=== PATIENT | female | born 1990 | race African-American/Black ===

== ENCOUNTER 2018-05-13 09:51 | Emergency (ER) | payer OTHER ==
[2018-05-13 10:03] VITALS: BP 113/82; PULSE 89; RESP 18; TEMP 98.4
[2018-05-13] MEDS ORDERED: SODIUM CHLORIDE 0.9% 2,000 ML IV STA (10:05)
[2018-05-13] MEDS ORDERED: METOCLOPRAMIDE 5 MG/ML 2 ML VIAL IVP STA (10:05)
--- NOTE | 2018-05-13 10:34 | ED ---
Nausea/Vomiting/Diarrhea HPI - General Chief complaint: Nausea/Vomiting/Diarrhea Stated complaint: 8 wks preg/vomiting Time Seen by Provider: 05/13/18 10:04 Source: patient, RN notes reviewed Mode of arrival: ambulatory Limitations: no limitations - History of Present Illness Initial comments: 28-year-old female presents emergency Department chief complaint abdominal pain, nausea vomiting. Patient states that she is 8 weeks and 1 day . Sondraaamir rakel has not seen an MIG TIG WELDER at this time. Patient has not had an ultrasound to confirm intrauterine . Patient complains of lower abdominal pain. Denies any vaginal bleeding no discharge.. patient states that she's not been able to keep anything down for last 1 week. patient denies any fevers or chills no dysuria. patient is a 0 - Related Data Previous Rx's Medication Instructions Recorded Metoclopramide [Reglan] 10 mg PO TID PRN #15 tab 05/13/18 Allergies Allergy/AdvReac Type Severity Reaction Status Date / Time No Known Allergies Allergy Verified 05/13/18 10:19 Review of Systems ROS Statement: Those systems with pertinent positive or pertinent negative responses have been documented in the HPI. ROS Other: All systems not noted in ROS Statement are negative. Past Medical History Past Medical History: No Reported History History of Any Multi-Drug Resistant Organisms: None Reported Past Surgical History: Section Past Psychological History: No Psychological Hx Reported Smoking Status: Never smoker Past Alcohol Use History: None Reported Past Drug Use History: None Reported General Exam Limitations: no limitations General appearance: alert, in no apparent distress Head exam: Present: atraumatic, normocephalic, normal inspection Respiratory exam: Present: normal lung sounds bilaterally. Absent: respiratory distress, wheezes, rales, rhonchi, stridor Cardiovascular Exam: Present: regular rate, normal rhythm, normal heart sounds. Absent: systolic murmur, diastolic murmur, rubs, gallop, clicks GI/Abdominal exam: Present: soft, tenderness (Mild suprapubic), normal bowel sounds. Absent: distended, guarding, rebound, rigid Back exam: Absent: CVA tenderness (R), CVA tenderness (L) Skin exam: Present: warm, dry, intact, normal color. Absent: rash Course Vital Signs 05/13/18 10:00 Temperature 98.4 F Pulse Rate 89 Respiratory 18 Rate Blood Pressure 113/82 O2 Sat by Pulse 100 Oximetry Medical Decision Making - Medical Decision Making 28-year-old female presented for nausea vomiting abdominal pain and early . Patient lab work, urinalysis and ultrasound. Ultrasound shows evidence of possible subchorionic hemorrhage. Patient has no active bleeding. Patient will be discharged follow-up with MIG TIG WELDER return parameters were discussed. - Lab Data Result diagrams: 05/13/18 10:40 05/13/18 10:40 Lab Results 05/13/18 05/13/18 05/13/18 Range/Units 10:40 10:40 10:40 WBC 5.4 (3.8-10.6) k/uL RBC 4.92 (3.80-5.40) m/uL Hgb 12.9 (11.4-16.0) gm/dL Hct 40.8 (34.0-46.0) % MCV 82.9 (80.0-100.0) fL MCH 26.2 (25.0-35.0) pg MCHC 31.6 (31.0-37.0) g/dL RDW 13.1 (11.5-15.5) % Plt Count 324 (150-450) k/uL Neutrophils % 51 % Lymphocytes % 37 % Monocytes % 8 % Eosinophils % 2 % Basophils % 0 % Neutrophils # 2.7 (1.3-7.7) k/uL Lymphocytes # 2.0 (1.0-4.8) k/uL Monocytes # 0.4 (0-1.0) k/uL Eosinophils # 0.1 (0-0.7) k/uL Basophils # 0.0 (0-0.2) k/uL Sodium 137 (137-145) mmol/L Potassium 4.1 (3.5-5.1) mmol/L Chloride 102 (98-107) mmol/L Carbon Dioxide 25 (22-30) mmol/L Anion Gap 10 mmol/L BUN 8 (7-17) mg/dL Creatinine 0.48 L (0.52-1.04) mg/dL Est GFR (CKD-EPI)AfAm >90 (>60 ml/min/1.73 sqM) Est GFR (CKD-EPI)NonAf >90 (>60 ml/min/1.73 sqM) Glucose 88 (74-99) mg/dL Calcium 9.8 (8.4-10.2) mg/dL Total Bilirubin 0.5 (0.2-1.3) mg/dL AST 18 (14-36) U/L ALT 24 (9-52) U/L Alkaline Phosphatase 45 (38-126) U/L Total Protein 7.5 (6.3-8.2) g/dL Albumin 4.4 (3.5-5.0) g/dL Amylase 136 H (30-110) U/L Lipase 144 (23-300) U/L Urine Color Yellow Urine Appearance Clear (Clear) Urine pH 7.5 (5.0-8.0) Ur Specific [place] 1.017 (1.001-1.035) Urine Protein Trace H (Negative) Urine Glucose (UA) Negative (Negative) Urine Ketones Negative (Negative) Urine Blood Negative (Negative) Urine Nitrite Negative (Negative) Urine Bilirubin Negative (Negative) Urine Urobilinogen <2.0 (<2.0) mg/dL Ur Leukocyte Esterase Negative (Negative) Disposition Clinical Impression: Nausea/vomiting in Disposition: HOME SELF-CARE Condition: Stable Instructions (If sedation given, give patient instructions): Nausea and Vomiting in (ED) Additional Instructions: Please return to the Emergency Department if symptoms worsen or any other concerns. Prescriptions: Metoclopramide [Reglan] 10 mg PO TID PRN #15 tab PRN Reason: GERD Is patient prescribed a controlled substance at d/c from ED?: No Referrals: None,Stated [Primary Care Provider] - 1-2 days Time of Disposition: 12:41
[2018-05-13 11:07] LABS: Appearance,Urine Clear (Clear); Bilirubin,Urine Negative (Negative); Blood,Urine Negative (Negative); Color,Urine Yellow; Glucose,Urine (UA) Negative (Negative); Ketones,Urine Negative (Negative); Leukocyte Esterase,Urine Negative (Negative); Nitrite,Urine Negative (Negative); PH, Urine 7.5 (5.0-8.0); Protein,Urine Trace (Negative); Specific Gravity,Urine 1.017 (1.001-1.035); Urobilinogen,Urine <2.0 mg/dL (<2.0)
[2018-05-13 11:13] LABS: Basophils % (A) 0 %; Eosinophils # (A) 0.1 k/uL (0-0.7); Eosinophils % (A) 2 %; HCT 40.8 % (34.0-46.0); HGB 12.9 gm/dL (11.4-16.0); Lymphocytes % (A) 37 %; MCH 26.2 pg (25.0-35.0); MCHC 31.6 g/dL (31.0-37.0); MCV 82.9 fL (80.0-100.0); Mean Platelet Volume 7.5; Monocytes # (A) 0.4 k/uL (0-1.0); Monocytes % (A) 8 %; Neutrophils # (A) 2.7 k/uL (1.3-7.7); Neutrophils % (A) 51 %; Platelet Count 324 k/uL (150-450); RBC 4.92 m/uL (3.80-5.40); RDW 13.1 % (11.5-15.5); WBC 5.4 k/uL (3.8-10.6)
[2018-05-13 11:23] LABS: ALT 24 U/L (9-52); AST 18 U/L (14-36); Albumin 4.4 g/dL (3.5-5.0); Alkaline Phosphatase 45 U/L (38-126); Amylase 136 U/L (30-110); Anion Gap 10 mmol/L; Blood Urea Nitrogen 8 mg/dL (7-17); Calcium 9.8 mg/dL (8.4-10.2); Carbon Dioxide 25 mmol/L (22-30); Chloride 102 mmol/L (98-107); Glucose 88 mg/dL (74-99); Lipase 144 U/L (23-300); Potassium 4.1 mmol/L (3.5-5.1); Sodium 137 mmol/L (137-145); Total Bilirubin 0.5 mg/dL (0.2-1.3); Total Protein 7.5 g/dL (6.3-8.2)
--- NOTE | 2018-05-13 12:32 | US ---
EXAMINATION TYPE: Transabdominal DATE OF EXAM: 05/13/2018 11:15 AM COMPARISON: NONE CLINICAL HISTORY: Pain. Vomiting EXAM PERFORMED: Transabdominal (TA) EXAM MEASUREMENTS: GESTATIONAL AGE / DATING Physician Established: (8 weeks/1 days) EDC: 12/22/2018 Dates by LMP: (8 weeks/1 days) EDC: 12/22/2018 Dates by First Scan: No previous this is first scan Dates by Current Scan for: (8 weeks/0 days) EDC: 12/23/2018 MATERNAL ANATOMY Uterus: 12.5 x 4.2 x 7.9 cm Right Ovary: 2.6 x 1.6 x 2.6 cm Left Ovary: 4.0 x 2.4 x 3.4 cm Post CDS / Adnexa: wnl Presence of free fluid: No Presence of corpus luteal cyst: Yes, left ovary measuring 2.5 x 1.7 x 2.2 cm Presence of subchorionic bleed: Yes, to the left of the gestational sac measuring 4.5 x 1.7 x 4.4 cm GESTATION / SURVEY CRL: 1.6 cm (8 weeks/0 days) Yolk Sac (normal less than 6mm): 3 mm Heart Rate: 162 bpm Rhythm: Normal IUP: Viable IUP Date of LMP: 03/17/2018 Beta HcG (if available): Not available at this time Viable IUP, measurements consist with dates. Probable subchorionic bleed visualized measuring 4.5 x 1 .7 x 4.4 cm IMPRESSION: Single viable intrauterine corresponding to ultrasound age 8 weeks 0 days with estimated da te of delivery 12/23/2018. Findings suggestive of subchorionic hemorrhage.
[2018-05-13 12:49] LABS: HCG,Quantitative Serum 91956.4 mIU/mL
== END 2018-05-13 13:00 | disposition home or self-care (01) ==
LOC: EC 09:51
DX: O21.9 Vomiting of pregnancy, unspecified (principal); O26.891 Other specified pregnancy related conditions, first trimester; R10.30 Lower abdominal pain, unspecified; Z3A.08 8 weeks gestation of pregnancy
CPT/HCPCS: 36415; 76801; 80053; 81003; 82150; 83690; 84702; 85025; 96361; 96374; 99284

== ENCOUNTER 2018-07-09 15:12 | Emergency (ER) | payer OTHER ==
[2018-07-09 15:17] VITALS: BP 120/77; PULSE 82; RESP 18; TEMP 98
--- NOTE | 2018-07-09 16:05 | ED ---
General Adult HPI - General Chief complaint: Recheck/Abnormal Lab/Rx Stated complaint: issues Time Seen by Provider: 07/09/18 15:26 Source: patient, RN notes reviewed Mode of arrival: ambulatory Limitations: no limitations - History of Present Illness Initial comments: 28-year-old female currently 16 weeks presents to the emergency department for a chief complaint of decreased movement. Patient states she was feeling the fetus move significantly but has not felt movement in the past week. States she does have a confirmed intrauterine but has not been able to follow-up with TECHNOLOGY DIRECTOR because "no one accepts her here." Patient denies any vaginal bleeding. Denies any pelvic or abdominal pain or cramping.Patient has no other complaints at this time including shortness of breath, chest pain, abdominal pain, nausea or vomiting, headache, or visual changes. - Related Data Previous Rx's Medication Instructions Recorded Metoclopramide [Reglan] 10 mg PO TID PRN #15 tab 05/13/18 Allergies Allergy/AdvReac Type Severity Reaction Status Date / Time No Known Allergies Allergy Verified 07/09/18 15:17 Review of Systems ROS Statement: Those systems with pertinent positive or pertinent negative responses have been documented in the HPI. ROS Other: All systems not noted in ROS Statement are negative. Past Medical History Past Medical History: No Reported History History of Any Multi-Drug Resistant Organisms: None Reported Past Surgical History: Section Past Psychological History: No Psychological Hx Reported Smoking Status: Never smoker Past Alcohol Use History: None Reported Past Drug Use History: None Reported General Exam Limitations: no limitations General appearance: alert, in no apparent distress Head exam: Present: atraumatic, normocephalic, normal inspection Eye exam: Present: normal appearance, PERRL, EOMI. Absent: scleral icterus, conjunctival injection, periorbital swelling ENT exam: Present: normal exam, mucous membranes moist Neck exam: Present: normal inspection, full ROM. Absent: tenderness, meningismus, lymphadenopathy Respiratory exam: Present: normal lung sounds bilaterally. Absent: respiratory distress, wheezes, rales, rhonchi, stridor Cardiovascular Exam: Present: regular rate, normal rhythm, normal heart sounds. Absent: systolic murmur, diastolic murmur, rubs, gallop, clicks GI/Abdominal exam: Present: soft, normal bowel sounds. Absent: distended, tenderness, guarding, rebound, rigid Neurological exam: Present: alert, oriented X3, CN II-XII intact Psychiatric exam: Present: normal affect, normal mood Course Vital Signs 07/09/18 15:15 Temperature 98.0 F Pulse Rate 82 Respiratory 18 Rate Blood Pressure 120/77 O2 Sat by Pulse 99 Oximetry Medical Decision Making - Medical Decision Making 28-year-old female presents for decreased movement, currently 16 weeks . Patient has not yet seen an TECHNOLOGY DIRECTOR but does have a confirmed intrauterine . Denies abdominal pain or vaginal bleeding. Denies any other complaints. Exam is unremarkable. Patient received ultrasound and then apparently eloped from the emergency department. She did not wait to have the results back. I was not able to give patient referral to TECHNOLOGY DIRECTOR. I did review ultrasound report after patient left however process seen. Disposition Clinical Impression: Disposition: Left Against Medical Advice Is patient prescribed a controlled substance at d/c from ED?: No Referrals: None,Stated [Primary Care Provider] - 1-2 days
--- NOTE | 2018-07-09 16:51 | US ---
EXAMINATION TYPE: US OB >= 14 wk fetus DATE OF EXAM: 07/09/2018 COMPARISON: US 05/23/2018 CLINICAL HISTORY: PainPatient states she has not felt the baby move. TECHNIQUE: Transabdominal (TA) GESTATIONAL AGE / DATING Physician Established: (16 weeks/2 days) EDC: 12/22/2018 Dates by LMP: (16 weeks/2 days) EDC: 12/22/2018 Dates by First Scan: (16 weeks/1 days) EDC: 12/23/2018 Dates by Current Scan: (16 weeks/2 days) EDC: 12/22/2018 SURVEY IUP: Single PLACENTA: Anterior PREVIA: No Previa DEMOND: 12.3 cm Normal CERVICAL LENGTH (transabdominal: norm > 3.0cm): 3.4 cm BIOMETRY PRESENTATION: Vertex BPD: 3.3 cm 16 weeks / 1 days HC: 12.6 cm 16 weeks / 3 days AC: 10.1 cm 16 weeks / 1 days FL: 2.1 cm 16 weeks / 1 days ESTIMATED WEIGHT IN GRAMS: 147 grams ESTIMATED WEIGHT IN LBS/OZ: 0 lbs. 5 oz. WEIGHT PERCENTAGE BASED ON ESTABLISHED DATES: 34.8% HC/AC: 1.3 Normal FL/AC: 20.5 Normal HEART RATE: 158 bpm RHYTHM: Normal Growth according to dates. IMPRESSION: No complicating process seen. There is satisfactory growth compared to last exam.
== END 2018-07-09 17:14 | disposition left against medical advice (07) ==
LOC: EC 15:12
DX: Z34.90 Encounter for supervision of normal pregnancy, unspecified, unspecified trimester (principal); Z3A.16 16 weeks gestation of pregnancy
CPT/HCPCS: 76805; 99283